=== PATIENT | female | born 1995 | race Two or more races ===

== ENCOUNTER 2018-01-13 11:31 | Outpatient (CLI) | payer OTHER | END 2018-01-13 12:28 | disposition home or self-care (01) | LOC: SONOGRAMA 11:31 | DX: E05.00 Thyrotoxicosis with diffuse goiter without thyrotoxic crisis or storm (principal) ==

== ENCOUNTER 2018-02-28 11:01 | Emergency (ER) | payer OTHER ==
[~2018-02-28] VITALS: Ht 167.6 cm; Wt 73.9 kg
[2018-02-28] MEDS ORDERED: PROPRANOLOL HCL10 MG (11:12)
== END 2018-02-28 15:15 | disposition home or self-care (01) ==
LOC: ER 11:01
DX: R30.0 Dysuria (principal)